=== PATIENT | female | born 1990 | race Caucasian/White ===

== ENCOUNTER 2016-08-01 12:00 | Day surgery (SDC) | payer OTHER ==
[~2016-08-01] VITALS: Ht 162.6 cm; Wt 84.8 kg
[~2016-08-01 12:00] MED LIST: BIOT5TAB PO; OMEP20CA11 PO; Sodium Chloride LOK Flush 10 mL Syringe IV PRN; fentaNYL-PF 50 mCg/mL 2 mL Inj IVPUSH PRN
[2016-08-01 12:21] VITALS: BP 119/78; PULSE 70; O2SAT 97
[2016-08-01] MEDS ORDERED: 0.9% Sodium Chloride 1,000 ML IV ONE (13:27)
[2016-08-01 13:34] VITALS: BP 107/66; PULSE 75; RESP 14; O2SAT 96
[2016-08-01 13:44] VITALS: BP 112/65; PULSE 92; RESP 14; O2SAT 99
[2016-08-01 13:47] VITALS: BP 116/74; PULSE 65; RESP 14; O2SAT 99
--- NOTE | 2016-08-01 13:52 | ENDO ---
[address] [address] ENDOSCOPY PROCEDURE PATIENT: KATIE FIELDS : 1990 MR#: [id number] ADMIT: 08/01/2016 JOB ID: [id number] TYPE OF OPERATION: Esophagogastroduodenoscopy with biopsy. PREOPERATIVE DIAGNOSIS(ES): Epigastric pain. POSTOPERATIVE DIAGNOSIS(ES): Normal upper endoscopy, status post biopsy. ANESTHESIA: Fentanyl 100 mcg, Versed 5 mg IV administered. COMPLICATIONS: None. BLOOD LOSS: Minimal. DESCRIPTION OF PROCEDURE: After risks and benefits were explained to the patient, informed consent was obtained. After anesthesia was administered, the upper endoscope was inserted into the mouth, intubated through the esophagus, stomach, and second portion of the duodenum, and the mucosa carefully examined. After the procedure was done, the scope was withdrawn and the procedure terminated. FINDINGS: Upon inspection of the esophagus, the esophagus was normal, without masses, ulcers, or lesions. Z-line located 40 cm from incisors. Upon entering the stomach, the stomach was also normal, without masses, ulcers, or lesions. Retroflexion in the duodenal bulb, first and second portion. Biopsy at the duodenum, antrum, and body of the stomach, and distal esophagus. IMPRESSION: Normal upper endoscopy, status post biopsy. RECOMMENDATIONS: Await pathology results. Follow up in GI Clinic as needed.
[2016-08-02] MEDS ORDERED: 0.9% Sodium Chloride 1,000 ML IV SCH (06:00)
[2016-08-02] MEDS ORDERED: fentaNYL-PF 50 mCg/mL 2 mL Inj IVPUSH PRN (06:00)
[2016-08-02] MEDS ORDERED: Sodium Chloride LOK Flush 10 mL Syringe IV PRN (06:00)
--- NOTE | 2016-08-05 11:35 | PATH ---
SURGICAL PATHOLOGY Attending Physician:Herber Albrecht MD CASE STATUS: Signed Out PATIENT NAME: KATIE FIELDS PID: [id number] : 1990 DATE COLLECTED:08/01/2016 00:00 SPECIMEN: 1: Stomach, Antrum, Biopsy 2: Gastric, Biopsy 3: Esophagus, Biopsy 4: Duodenum, Biopsy CLINICAL HISTORY: 1). GASTRIC ANTRUM - R/O H.PYLORI 2). GASTRIC BODY 3). DISTAL ESOPHAGUS 4). DUODENUM BIOPSY FINAL DIAGNOSIS: 1.GASTRIC ANTRUM, BIOPSY: GASTRIC ANTRUM WITH MILD CHRONIC GASTRITIS. Negative for Helicobacter organisms. Negative for intestinal metaplasia. No evidence of dysplasia or malignancy. 2.GASTRIC BODY BIOPSY: GASTRIC CORPUS WITH MILD CHRONIC ACTIVE GASTRITIS. Negative for Helicobacter organisms. Negative for intestinal metaplasia. No evidence of dysplasia or malignancy. 3.DISTAL ESOPHAGUS, BIOPSY: ESOPHAGEAL SQUAMOUS EPITHELIUM WITH MILD CHRONIC ACTIVE ESOPHAGITIS. Negative for intestinal metaplasia. No evidence of dysplasia or malignancy. 4.DUODENUM, BIOPSY: NO DIAGNOSTIC ABNORMALITY. Negative for intraepithelial lymphocytosis, villous blunting, or other features of celiac sprue. Negative for Giardia organisms, dysplasia and malignancy. ICD10 K29.70 GROSS DESCRIPTION: The specimens are received in formalin, labeled with the patient's name, and sublabeled as the following: (1) gastric antrum, r/o H. pylori; (3) distal esophagus; (4) duodenum. (1) The specimen consists of a fragment of antunez-white glistening rubbery semi-translucent tissue (0.5 x 0.4 x 0.1 cm). Section code: (1A) tissue. Specimen entirely submitted. (2) The specimen consists of multiple fragments of antunez-white glistening rubbery semi-translucent tissue (0.5 x 0.2 x 0.1 cm in aggregate). Section code: (2A) tissue. Specimen entirely submitted. (3) The specimen consists of a fragment of sifuentes-white translucent tissue (0.4 x 0.2 x <0.1 cm). Section code: (3A) tissue. Specimen entirely submitted. (4) The specimen consists of multiple fragments of antunez-white glistening rubbery semi-translucent tissue (0.7 x 0.2 x 0.1 cm in aggregate). Section code: (4A) tissue. Specimen entirely submitted. 08/03/16 MICRO DESCRIPTION: 2. The lamina propria of the gastric corpus is expanded by modest numbers of acute and chronic inflammatory cells. An immunostain for Helicobacter organisms is done because of the acute inflammation and is negative. This test was developed and its performance characteristics determined by [facility]. It has not been cleared or approved by the [place]. [place]. Food and Drug Administration. The FDA has determined that such clearance or approval is not necessary. This test is used for clinical purposes. It should not be regarded as investigational or for research. ICD-9 CODES: CPT CODES: 1: 61046 2: 93935, 51760 3: 33765 4: 57100 Electronically Signed Out Tereso Whitney MD [facility] Pathology [facility] [address], [place] [address] Technical component performed at [facility], [facility] [address], [place], [address]
== END 2016-08-01 23:59 | disposition home or self-care (01) ==
LOC: END 12:00
PROVIDERS: ATTEND Internal Medicine Gastroenterology
DX: R10.13 Epigastric pain (principal)
CPT/HCPCS: 43239; G0500; J2250; J3010; J7030